=== PATIENT | female | born 2000 | race Caucasian/White ===

== ENCOUNTER 2023-10-03 18:39 | Outpatient (REF) | payer OTHER, SELFPAY ==
[2023-10-09 10:09] LABS: Age Gdln ACOG Testing Note (.); IGP, rfx Aptima HPV ASCU Note (.)
== END 2023-10-03 18:40 | disposition home or self-care (01) ==
LOC: LAB 18:39
PROVIDERS: Visit Provider Obstetrics & Gynecology
DX: Z01.419 Encounter for gynecological examination (general) (routine) without abnormal findings (principal)
CPT/HCPCS: G0145

== ENCOUNTER 2024-10-12 20:14 | Outpatient (REF) | payer OTHER, SELFPAY ==
--- OUTSIDE RECORDS SUMMARY | 2024-10-12 20:19 | XMS_ITS | CCD ---
Author Organization [facility] Care Team Providers Care Data Software Engineer Name Role Phone DR BRE TORRE Attending Unavailable SYLVIE, DR DÍAZ Consulting Unavailable SYLVIE, DR DÍAZ Primary Care Unavailable SYLVIE, DR DÍAZ Admitting Unavailable Jason MCCLURE, Sarah Primary Care Provider Amanda [employer], Irais Unavailable Sarah Gomez MD Unavailable KYLIE MOY Attending Unavailab le AMANDA, IRAIS Attending Unavailable EMERITA MÁRQUEZ Attending Unavailable AARONTRE TAVERAS Attending Unavailable KAMPFER, IRAIS Referring Unavailable AARONTRE Attending Unavailable KAMPFER, IRAIS Attending Unavailable KAMJosetteFER, IRAIS Attending Unavailable BRE TORRE Attending Unavailable EMERITA MÁRQUEZ Attending Unavailable KAMPFER, IRAIS Referring Unavailable KAMPFER, IRAIS Attending Unavailable TIFFANY, JUJU Attending Unavailable KAMPFER, IRAIS Attending Unavailable TIFFANY, JUJU Attending Unavailable KAMPFER, IRAIS Attending Unavailable KAMPFER, IRAIS Referring Unavailable Allergies Allergy Classification Reported Allergen(s) Allergy Type Date of Onset Reaction(s) Facility (1 source) Contrast media Drug allergy (disorder) [facility] (1 source) Sulfonamides (Antibiotic) Drug allergy (disorder) [facility] (11 sources) Contrast media Propensity to adverse reactions 3 Rash [facility] (11 sources) Sulfonamides (Antibiotic) Propensity to adverse reactions 3 Rash [facility] Medications Current Medications Medication Drug Class(es) Dates Sig (Normalized) Sig (Original) amphetamine aspartate 5 mg / amphetamine sulfate 5 mg / dextroamphetamine saccharate 5 mg / dextroamphetamine sulfate 5 mg oral tablet (11 sources) Central Nervous System Stimulant Start: 07-13-2024 take 1 tablet by mouth in the morning amphetamine-dextro amphetamine (Adderall) 20 MG tablet Indications: Attention deficit hyperactivity disorder, predominantly inattentive type (CMS/HCC) Take 1 tablet (20 mg) by mouth in the morning and 1 tablet (20 mg) before bedtime. 60 tablet 07/13/2024 Active Start: 10-07-2023 take 1 capsule by [facility] every twenty-four hours in the morning amphetamine-dextroamphetamine XR (Addera ll XR) 20 MG 24 hr capsule Indications: Attention Deficit Hyperactivity Disorder Take 1 capsule (20 mg) by mouth in the morning. Do not crush or chew.. 30 capsule 0 10/07/2023 Active benzoyl peroxide 0.05 mg/mg / clindamycin 0.01 mg/mg topical gel (3 sources) Lincosamide Antibacterial Start: 06-18-2023 clindamycin-benzoyl peroxide (BenzacLIN) gel 24 hr buPROPion hydrochloride 150 mg extended release oral tablet (8 sources) Aminoketone Start: 07-13-2024 End: 10-11-2024 take 1 tablet by mouth once daily buPROPion XL (Wellbutrin XL) 150 MG 24 hr tablet Indications: Obesity (BMI 30-39.9) , Anxiety and depression (CMS/HCC) Take 1 tablet (150 mg) by mouth Daily Do not crush, chew, or split. 90 tablet 07/13/2024 Active clindamycin 10 mg/ml topical lotion (11 sources) Lincosamide Antibacterial Start: 02-10-2024 clindamycin (Cleocin T) 1 % lotion Indications: Acne vulgaris Apply thin layer to face, once daily in the morning, 30 day supply 60 mL 11 02/10/2024 Active Start: 11-05-2023 clindamycin (C leocin T) 1 % lotion Indications: Acne vulgaris Apply thin later to affected areas on the body during flares, 30 day supply 60 mL 3 11/05/2023 Active doxycycline hyclate 100 mg oral capsule (4 sources) Tetracycline-class Drug Start: 07-27-2024 End: 09-25-2024 doxycycline (Vibramycin) 100 MG capsule Indications: Vaginal burning Take 1 capsule (100 mg) by mouth in the morning and 1 capsule (100 mg) before bedtime. Take with at least 8 ounces (large glass) of water, do not lie down for 30 minutes after. 120 capsule 07/27/2024 09/25/2024 Active fluconazole 150 mg oral tablet (1 source) Azole Antifungal Start: 09-16-2024 End: 09-16-2024 take 1 tablet by mouth once fluconazole (Diflucan) 150 MG tablet Indications: Candidiasis Take 1 tablet (150 mg) by mouth 1 (one) time for 1 dose 1 tablet 09/16/2024 09/16/2024 Active hydrOXYzine hydrochloride 25 mg oral tablet (10 sources) Antihistamine Start: 01-06-2024 End: 02-05-2024 take 1 tablet by mouth three times daily as needed for anxiety hydrOXYzine HCl (Atarax) 25 MG tablet Indications: Anxiety and depression (CMS/HCC) Take 1 tablet (25 mg) by mouth 3 (three) times a day as needed for anxiety 90 tablet 01/06/2024 Active levonorgestrel 0.697348 mg/hr intrauterine system (11 sources) Progestin, Progestin-containing Intrauterine Device Levonorgestrel (Liletta, 52 MG,) 20.1 MCG/DAY intrauterine device by Intrauterine route. Active magnesium oxide 400 mg oral tablet (8 sources) Start: 06-05-2024 take 1 tablet by mouth once daily magnesium oxide (Mag-Ox) 400 MG tablet Indications: Other migraine without status migrainosus, not intractable (CMS/HCC) Take 1 tablet (400 mg) by mouth Daily 90 tablet 06/05/2024 Active metroNIDAZOLE 500 mg oral tablet (4 sources) Nitroimidazole Antimicrobial Start: 09-21-2024 End: 09-28-2024 take 1 tablet by mouth in the morning metroNIDAZOLE (Flagyl) 500 MG tablet Indications: Bacterial vaginosis Take 1 tablet (500 mg) by mouth in the morning and 1 tablet (500 mg) before bedtime. Do all this for 7 days. 14 tablet 09/21/2024 09/28/2024 Active minocycline 100 mg oral capsule (2 sources) Tetracycline-class Drug Start: 12-08-2023 minocycline 100 MG capsule predniSONE 20 mg oral tablet (2 sources) Start: 09-26-2024 End: 10-01-2024 take 1 tablet by mouth in the morning predniSONE (Deltasone) 20 MG tablet Indications: Neck pain Take 1 tablet (20 mg) by mouth in the morning and 1 tablet (20 mg) before bedtime. Do all this for 5 days. 10 tablet 09/26/2024 10/01/2024 Active tiZANidine 2 mg oral tablet (3 sources) Central alpha-2 Adrenergic Agonist Start: 09-26-2024 End: 10-01-2024 take 1 tablet by mouth every eight hours for muscle spasms tiZANidine (Zanaflex) 2 MG tablet Indications: Neck pain Take 1 tablet (2 mg) by mouth every 8 (eight) hours if needed for muscle spasms for up to 5 days 15 tablet 09/26/2024 Active tretinoin 0.0001 mg/mg topical gel (11 sources) Retinoid Start: 12-03-2023 End: 03-02-2024 tretinoin (Retin-A) 0.01 % gel Indications: Acne vulgaris Apply topically at bedtime 45 g 2 12/03/2023 03/02/2024 Active 24 hr venlafaxine 37.5 mg extended release oral capsule (2 sources) Serotonin and Norepinephrine Reuptake Inhibitor Start: 01-06-2024 End: 02-05-2024 take 1 capsule by mouth every twenty-four hours in the morning venlafaxine XR (Effexor XR) 37.5 MG 24 hr capsule Indications: Anxiety and depression (CMS/HCC) Take 1 capsule (37.5 mg) by mouth in the morning. Do not crush or chew.. 30 capsule 0 01/06/2024 02/05/2024 Active Problems Active Problems Problem Classification Problem Date Documented Date Episodic/Chronic Anxiety disorders (1 source) Mixed anxiety and depressive disorder; Translations: [Anxiety disorder, unspecified] 01-06-2024 Chronic Attention-deficit, conduct, and disruptive behavior disorders (13 sources) Attention deficit hyperactivity disorder, predominantly inattentive type; Translations: [Attention-deficit hyperactivity disorder, predominantly inattentive type] Onset: 02-10-2018 07-09-2023 Chronic Immunizations and screening for infectious disease (1 source) Encounter for screening for human papillomavirus (HPV); Translations: [ENC SCREENING HUMAN PAPILLOMAVIRUS] Onset: 12-05-2021 Episodic Inflammatory diseases of female pelvic organs (1 source) Bacterial vaginosis; Translations: [Acute vaginitis] 09-21-2024 Episodic Mycoses (1 source) Candidiasis; Translations: [Candidiasis, unspecified] 09-16-2024 Episodic Other female genital disorders (1 source) Vaginal discharge; Translations: [Other specified noninflammatory disorders of vagina] 09-18-2024 Episodic Other nutritional; endocrine; and metabolic disorders (2 sources) Body mass index 30+ - obesity; Translations: [Obesity, unspecified] 09-26-2024 Chronic Other screening for suspected conditions (not mental disorders or infectious disease) (4 sources) Encounter for screening for malignant neoplasm of cervix; Translations: [ENC SCREENING MALIG NEOPLASM CERV] Onset: 11-29-2021 Episodic Other upper respiratory disease (11 sources) Allergic rhinitis due to pollen; Translations: [Allergic rhinitis due to pollen] Onset: 02-10-2018 07-09-2023 Chronic Spondylosis; intervertebral disc disorders; other back problems (2 sources) Neck pain; Translations: [Cervicalgia] 09-26-2024 Episodic Unclassified (10 sources) Patient on antidepressant monitoring plan Onset: 01-06-2024 01-06-2024 Past or Other Problems Problem Classification Problem Date Documented Da te Episodic/Chronic Mood disorders (11 sources) Mood disorders Onset: 10-30-2023 Resolved: 07-13-2024 10-30-2023 Results Test Name Value Interpretation Reference Range Facility XR CERVICAL SPINE COMPLETE 4 -5 VIEWSon 09-28-2024 XR CERVICAL SPINE COMPLETE 4-5 VIEWS Exam: XR - CERVICAL SPINE COMPLETE W/OBLIQUES Reason for exam: Neck pain, numbness and tingling Prior comparative studies: None Findings: There is overall normal cervical alignment. Neuroforamina are patent bilaterally. Open-mouth view is unremarkable. No fracture or subluxation is apparent. Atlantoaxial space is normal. No prevertebral soft tissue swelling seen. IMPRESSION: 1. No specific abnormality identified. Electronically Signed Jayden Alvarez M.D. 2024-09-28 11:05:47 Normal Not Available SURESWAB(R) ADVANCED VAGINIT IS PLUS, TMAon 09-21-2024 C. glabrata RNA FRANCISCA+probe Ql (Vag fld) Not detected NOT DETECTED [facility] Comment on above: Mindy species C. albicans, C. tropicalis, C. parapsilosis, and/or C. dubliniensis can be detected, but not differentiated, in the Mindy spp. result. C. trachomatis rRNA FRANCISCA+probe Ql (Unsp spec) Not detected NOT DETECTED [facility] Mindy sp rRNA Probe Ql (Vag fld) Not detected NOT DETECTED [facility] re Interpretation and review of laboratory results Abnormal [facility] Lactobacillus crispatus+gasseri+je nsenii + Gardnerella vaginalis + Atopobium vaginae rRNA FRANCISCA+probe Ql (Vag fld) Positive Abnormal NEGATIVE [facility] N. gonorrhoeae rRNA FRANCISCA+probe Ql (Unsp spec) Not detected NOT DETECTED [facility] Comment on above: For additional infor mation, please refer to https://education.Brainpark/faq/UWO144 (This link is being provided for information/ educational purposes only.) NO COLLECTION DATE RECEIVED. WE HAVE USED THE DATE THE SPECIMEN WAS RECEIVED BY THIS LABORATORY THE COLLECTION DATE. IF THIS IS INCORRECT, PLEASE CONTACT CLIENT SERVICES. PHONE NUMBER: [phone] T. vaginalis rRNA FRANCISCA+probe Ql (Unsp spec) Not detected NOT DETECTED [facility] FASTING: UNKNOWN [facility] Organization Information Site ID: QPT Name: [facility] Address: [address] [place] [id number] Director: Clint Hector MD [facility]G PAN[facility] 2: 21 to 27on 12-05-2021 . . Normal [facility] Comment on above: Performed By: #### [id number] #### [facility] [address] [address] [address] Jackson Naylor Age Gdln ACOG Testing - Normal [facility] Comment on above: Performed By: #### [id number] #### [facility] [address] [address] [address] Jackson Naylor DIAGNOSIS: Comment Normal [facility] Comment on above: Result Comment: NEGA TIVE FOR INTRAEPITHELIAL LESION OR MALIGNANCY. Performed By: #### [id number] #### [facility] [address] [address] [address] Jackson Naylor Methodology: Comment [facility] Comment on above: Result Comment: This liquid based ThinPrep(R) pap test was screened with the use of an image guided system. Performed By: #### [id number] #### [facility] [address] [place] [address] Dr. Jackson Naylor Note: Comment Normal [facility] Comment on above: Result Comment: The Pap smear is a screening test designed to aid in the detection of premalignant and malignant conditions of the uterine cervix. It is not a diagnostic procedure and should not be used as the sole means of detecting cervical cancer. Both false-positive and false-negative reports do occur. . Performed By: #### [id number] #### [facility] [address] [place] [address] Dr. Jackson Naylor Performed by: Comment Normal [facility] Comment on above: Result Comment: Segundo Ferguson, Supervisor Agricultural Education (ASCP) Performed By: #### [id number] #### [facility] [address] [place] [address] Dr. Jackson Naylor Reflex Criteria: Comment Normal [facility] Comment on above: Result Comment: The HPV DNA reflex criteria were not met with this specimen result therefore, no HPV testing was performed. . Performed By: #### [id number] #### [facility] [address] [place] [address] Dr. Jackson Naylor Specimen adequacy: Comment Normal [facility] Comment on above: Result Comment: Sati sfactory for evaluation. Endocervical and/or squamous metaplastic cells (endocervical component) are present. Performed By: #### 4 [id number] #### [facility] [address] [place] [address] Dr. Jackson Naylor CHLAMYDIA/GONOCOCCUS FRANCISCA (SW AB/URINE/PAPon 12-03-2021 Chlamydia trachomatis, FRANCISCA Negative Normal Negative [facility] Comment on above: Performed By: #### C T/NGNA #### [facility] [address] [place] [address] Dr. Jackson Naylor Neisseria gonorrhoeae, FRANCISCA Negative Normal Negative [facility] Comment on above: Performed By: #### C T/NGNA #### [facility] [address] [place] [address] Dr. Jackson Naylor VAGINITIS/VAGINOSIS DNA PROB Markel 12-02-2021 Mindy species Negative Normal Negative [facility] Comment on above: Performed By: #### V AGINT #### [facility] [address] [address] [address] Jackson Naylor Gardnerella vaginalis Positive Abnormal Negative [facility] Comment on above: Performed By: #### V AGINT #### [facility] [address] [address] [address] Jackson Naylor Trichomonas vaginalis Negative Normal Negative [facility] Comment on above: Performed By: #### V AGINT #### [facility] [address] [place], [place] [address] Dr. Jackson Naylor Vital Signs Date Time Vital Sign Value Performing Clinician Ning morgan 09-26-2024 09:59-0400 Body height 154.9 cm Irais Patel [employer] Work Phone: [facility] 09-26-2024 09:59-0400 Body mass index (BMI) [Ratio] 31.55 kg/m2 Irais Amanda [employer] Work Phone: [facility] 09-26-2024 09:59-0400 Body weight 75.75 kg Irais Amanda [employer] Work Phone: [facility] 09-26-2024 09:59-0400 Diastolic blood pressure 82 mm[Hg] Irais Amanda [employer] Work Phone: [facility] 09-26-2024 09:59-0400 Heart rate 71 /min Irais Amanda [employer] Work Phone: [facility] 09-26-2024 09:59-0400 Respiratory rate 18 /min Irais Amanda [employer] Work Phone: [facility] 09-26-2024 09:59-0400 Systolic blood pressure 122 mm[Hg] Irais Patel [employer] Work Phone: [facility] 01-06-2024 09:39-0500 Body height 157.5 cm Irais Patel [employer] Work Phone: [facility] 01-06-2024 09:39-0500 Body mass index (BMI) [Ratio] 36.51 kg/m2 Irais Patel [employer] Work Phone: [facility] 01-06-2024 09:39-0500 Body weight 90.54 kg Irais Patel [employer] Work Phone: [facility] 01-06-2024 09:39-0500 Diastolic blood pressure 70 mm[Hg] Irais Patel [employer] Work Phone: [facility] 01-06-2024 09:39-0500 Heart rate 70 /min Irais Patel [employer] Work Phone: [facility] 01-06-2024 09:39-0500 SaO2% (BldA) [Mass fraction] 96 % Irais Patel [employer] Work Phone: [facility] 01-06-2024 09:39-0500 Systolic blood pressure 110 mm[Hg] Irais Patel [employer] Work Phone: [facility] Encounters Encounter Date Encounter Type Care Provider Facility Start: 10-12-2024 End: 10-12-2024 Bamboo flowsheet Bre Sylvie DO Work Phone: [facility] Start: 10-12-2024 End: 10-12-2024 Bamboo flowsheet Bre Sylvie DO Work Phone: [facility] Start: 09-28-2024 End: 09-28-2024 ambulatory IRAIS PATEL Not Available Start: 09-26-2024 End: 09-26-2024 Bamboo flowsheet Irais Patel [employer] Work Phone: [facility] Start: 09-26-2024 End: 09-26-2024 Bamboo flowsheet Irais Patel [employer] Work Phone: [facility] Start: 09-26-2024 End: 09-26-2024 Office outpatient visit 25 minutes Irais Patel [employer] Work Phone: [facility] Comment on above: Neck pain (Primary D x); Obesity (BMI 30-39.9); Attention deficit hyperactivity disorder, predominantly inattentive type (CMS/HCC) Start: 09-26-2024 End: 09-26-2024 ambulatory IRAIS PATEL Not Available Start: 09-21-2024 End: 09-21-2024 External Result Encounter Irais Patel [employer] Work Phone: [facility] Unsolicited Start: 09-21-2024 End: 09-21-2024 External Result Encounter Irais Patel [employer] Work Phone: [facility] Unsolicited Start: 09-21-2024 End: 09-21-2024 Orders Only Irais Patel [employer] Work Phone: [facility] Comment on above: Bacterial vaginosis (Primary Dx) Start: 09-18-2024 End: 09-18-2024 Orders Only Irais Patel [employer] Work Phone: [facility] Comment on above: Vaginal discharge (P rimary Dx) Start: 09-16-2024 End: 09-16-2024 Orders Only Irais Patel [employer] Work Phone: [facility] Comment on above: Candidiasis (Primary Dx) Start: 07-27-2024 End: 07-27-2024 ambulatory JUJU TIFFANY Not Available Start: 07-13-2024 End: 07-13-2024 ambulatory IRAIS KAMPFER Not Available Start: 06-24-2024 End: 06-24-2024 ambulatory JUJU TIFFANY Not Available Start: 04-10-2024 End: 04-10-2024 ambulatory IRAIS KAMPFER Not Available Start: 03-27-2024 End: 03-27-2024 ambulatory IRAIS KAMPFER Not Available Start: 03-04-2024 End: 03-04-2024 ambulatory TRE L AARON Not Available Start: 02-12-2024 End: 02-12-2024 ambulatory TRE L AARON Not Available Start: 02-10-2024 End: 02-10-2024 ambulatory EMERITA MÁRQUEZ Not Available Start: 01-15-2024 Telephone encounter Virginia VALENTEW [facility] Start: 01-06-2024 Bamboo flowsheet Irais Patel [employer] Work Phone: [facility] Start: 01-06-2024 Bamboo flowsheet Irais Patel [employer] Work Phone: [facility] Start: 01-06-2024 End: 01-06-2024 ambulatory IRAIS PATEL Not Available Start: 01-06-2024 End: 01-06-2024 Office outpatient visit 15 minutes Irais Amanda [employer] Work Phone: [facility] Comment on above: Anxiety and depressi on (CMS/HCC) (Primary Dx) Start: 11-05-2023 End: 11-05-2023 ambulatory EMERITA MÁRQUEZ Not Available Start: 11-04-2023 End: 11-04-2023 ambulatory BRE TORRE Not Available Start: 10-30-2023 End: 10-30-2023 ambulatory IRAIS MALIKRAY Not Available Start: 10-15-2023 End: 10-15-2023 ambulatory KYLIE MOY Not Available Start: 11-29-2021 End: 11-29-[address] BRE TORRE Facility:[facility]1 Procedures Date Procedure Procedure Detail Performing Clinician Start: 09-21-2024 SURESW(R) ADVANCED VAGINITIS PLUS, TMA Irasi Patel [employer] Work Phone: Plan of Treatment Date Care Activity Detail Author Start: 05-31-2025 Influenza vaccination Influenz a Vaccine (#1) [facility] Comment on above: Postponed from 08/02 (Patient Refused) Start: 02-17-2025 End: 02-17-2025 Patient encounter procedure 02/17/2025 9:05 AM EDT Office Visit [facility] [address] [place] [id number] Emerita Márquez, LIFT DRIVER-ROUNDER AND BACKER [address] [place] [address] [facility] Start: 10-12-2024 End: 10-12-2024 Patient encounter procedure [facility] Comment on above: Arrived Start: 09-26-2024 End: 09-26-2025 XR Cervical spine 4 or 5 Views XR cervical spine complete 4 to 5 views Imaging Routine Neck pain Expected: 09/26/2024, Expires: 09/26/2025 [facility] Work Phone: Comment on above: Expected: 09/26/2024 , Expires: 09/26/2025 Start: 09-26-2024 End: 09-26-2024 Patient encounter procedure 09/26/2024 10:00 AM EDT [facility] [address] [place] [id number] Irais Patel NP [address] [place] [address] Arrived [facility] Comment on above: Arrived Start: 09-18-2024 End: 09-18-2025 SURESWAB(R) ADVANCED VAGINITIS PLUS, TMA SURESWAB(R) ADVANCED VAGINITIS PLUS, TMA Pathology and Cytology Routine Vaginal discharge Expected: 09/18/2024 (Approximate), Expires: 09/18/2025 [facility] Work Phone: Comment on above: Expected: 09/18/2024 (Approximate), Expires: 09/18/2025 Start: 08-02-2024 Influenza vaccination Influenz a Vaccine (#1) [facility] Start: 05-31-2024 Influenza vaccination Influenz a Vaccine (#1) [facility] Comment on above: Postponed from 08/02 (Patient Refused) Start: 02-10-2024 End: 02-10-2024 Patient encounter procedure 02/10/2024 9:35 AM EDT Office Visit [facility] [address] [place] [address] Emerita Márquez APRN-ROUNDER AND BACKER [address] [place] [address] [facility] Immunizations Immunization Date Immunization Notes Care Provider Fa cili 10-06-2021 influenza, injectabl e, quadrivalent, preservative free Irais Kampfer [employer] Work Phone: [facility] 10-06-2021 influenza virus vacc ine, unspecified formulation Irais Patel [employer] Work Phone: [facility] 09-15-2020 diphtheria, tetanus toxoids and pertussis vaccine Irais Patel [employer] Work Phone: [facility] 02-28-2018 tetanus toxoid, redu michelle diphtheria toxoid, and acellular pertussis vaccine, adsorbed Irais Patel [employer] Work Phone: [facility] 04-10-2017 tuberculin skin test ; purified protein derivative solution, intradermal Irais Patel [employer] Work Phone: [facility] 04-09-2017 influenza, injectabl e, quadrivalent, preservative free Irais Patel [employer] Work Phone: [facility] 08-18-2010 tetanus toxoid, redu michelle diphtheria toxoid, and acellular pertussis vaccine, adsorbed Irais Patel [employer] Work Phone: [facility] 03-24-2003 diphtheria, tetanus toxoids and acellular pertussis vaccine Irais Patel [employer] Work Phone: [facility] 03-24-2003 measles, mumps and rubella virus vaccine Irais Patel [employer] Work Phone: [facility] 03-24-2003 poliovirus vaccine, inactivated Irais Patel [employer] Work Phone: [facility] 07-31-1999 diphtheria, tetanus toxoids and acellular pertussis vaccine, unspecified formulation Irais Patel [employer] Work Phone: [facility] 07-31-1999 haemophilus influenz ae type b vaccine, conjugate unspecified formulation Irais Patel [employer] Work Phone: [facility] 07-31-1999 measles, mumps and rubella virus vaccine Irais Patel [employer] Work Phone: [facility] 07-31-1999 trivalent poliovirus vaccine, live, oral Irais Patel [employer] Work Phone: [facility] 1998 diphtheria, tetanus toxoids and acellular pertussis vaccine, unspecified formulation Irais Malikpfer [employer] Work Phone: [facility] 1998 haemophilus influenz ae type b vaccine, conjugate unspecified formulation Irais Malikpfer [employer] Work Phone: [facility] 1998 diphtheria, tetanus toxoids and acellular pertussis vaccine, unspecified formulation Irais Malikpfer [employer] Work Phone: [facility] 1998 haemophilus influenz ae type b conjugate and Hepatitis B vaccine Irais Malikpfer [employer] Work Phone: [facility] 1998 poliovirus vaccine, inactivated Irais Malikpfer [employer] Work Phone: [facility] 1998 diphtheria, tetanus toxoids and acellular pertussis vaccine, unspecified formulation Irais Malikpfer [employer] Work Phone: [facility] 1998 haemophilus influenz ae type b conjugate and Hepatitis B vaccine Irais Malikpfer [employer] Work Phone: [facility] 1998 poliovirus vaccine, inactivated Irais Malikpfer [employer] Work Phone: [facility] 1998 hepatitis B vaccine, pediatric or pediatric/adolescent dosage Irais Malikpfer [employer] Work Phone: [facility] Payers Date Payer Category Payer Medicaid [employer] [place] [id number] 2022-Present [address] [place] [address] [id number] 2022 Private Health Insurance [facility] MEDICAID [id number] 2022 Medicaid [id number] 1998 Unknown [id number] 2.16.840.1.851940.3.579.2. 593 1998 Unknown [id number] 2.16.840.1.519715.3.579.2. 1258 1998 Unknown [id number] 2.16.840.1.999311.3.579.2. 1258 1998 Unknown [id number] 2.16.840.1.027949.3.579.2. 1258 1998 Unknown [id number] 2.16.840.1.723246.3.579.2. 1258 1998 Unknown [id number] 2.16.840.1.577108.3.579.2. 1258 1998 Unknown [id number] 2.16.840.1.023548.3.579.2. 1258 1998 Unknown [id number] 2.16.840.1.776922.3.579.2. 1258 1998 Unknown [id number] 2.16.840.1.840084.3.579.2. 1258 1998 Unknown [id number] 2.16.840.1.199204.3.579.2. 1258 1998 Unknown [id number] 2.16.840.1.187496.3.579.2. 1258 1998 Unknown [id number] 2.16.840.1.634351.3.579.2. 1258 1998 Unknown [id number] 2.16.840.1.889599.3.579.2. 1258 1998 Unknown [id number] 2.16.840.1.919505.3.579.2. 1258 1998 Unknown [id number] 2.16.840.1.699742.3.579.2. 1259 1998 Unknown [id number] 2.16.840.1.248274.3.579.2. 1259 1959 Unknown [id number] Social History Date Type Detail Facility Start: 07-09-2023 Tobacco smoking status NHIS Never sm oked tobacco [facility] Start: 07-09-2023 Tobacco use and exposure Smoke less tobacco non-user [facility] Start: 11-05-2023 End: 09-26-2024 Alcohol intake Ex-drinker (finding) [facility] Start: 07-09-2023 End: 07-13-2024 [facility] of [facility] Start: 07-09-2023 End: 07-13-2024 Alcohol Use Disorder Identification Test - Consumption [AUDIT-C] [facility] How often to you hav e a drink containing alcohol? Monthly or less [facility] How many standard dr inks containing alcohol do you have on a typical day? 1 or 2 [facility] How often do you hav e 6 or more drinks on 1 occasion? Never [facility] Start: 11-05-2023 Alcohol Comment rare [facility] Start: 1998 Sex Assigned At Not on file [facility] Start: 03-27-2024 Alcohol Comment rare; caffeine intake: 2-3 daily [facility] Start: 1998 Sex assigned at Female [facility] Start: 08-28-2024 Gender identity Identifies as female gender (finding) [facility] Goals Date Patient Goal Desired Activity /State Personal health goal Personal health goal History of Present illness Narrative 09-26-2024 Irais Patel NP - 09/26/2024 10:00 AM EDT Note Date & Type Note Facility 09-26-2024 History of Presen t illness Narrative Sandy Ibrahim is a 24 y.o. female presents with chief complaint of Neck Pain (Patient presents today for neck pain/possible pinched nerve. Patient has tried otc pain medication and exercises given by Kala Herrmann, [employer], that have not helped. ) HPI: HPI Has been having neck pain off and on for the past month, she talked with Kala Hoops, regional trainer, was provided exercises to start. Saturday, the pain was so bad she could barely move her neck. She restarted the exercises. She took a muscle relaxer and ibuprofen on Saturday but it made her very tired and she slept. Did feel have some relief after the muscle relaxer but doesn't want to use again d/t the side effects. She has pain looking down as well. Reports having some tingling in her hands as well. Using heat, massaging. No improvement. We did switch her adderall to immediate release, she feels she is doing better with it, taking it more frequently but does not take it daily. She is dealing with a of stress, stress at work and at home. SUBJECTIVE: MEDICATIONS: Current Outpatient Medications Medication Instructions amphetamine-dextroamphetamine (Adderall) 20 MG tablet 20 mg, Oral, 2 times daily buPROPion XL (WELLBUTRIN XL) 150 mg, Oral, Daily, Do not crush, chew, or split. clindamycin (Cleocin T) 1 % lotion Apply thin layer to face, once daily in the morning, 30 day supply hydrOXYzine HCl (ATARAX) 25 mg, Oral, 3 times daily PRN Levonorgestrel (Liletta, 52 MG,) 20.1 MCG/DAY intrauterine device by Intrauterine route. magnesium oxide (MAG-OX) 400 mg, Oral, Daily metroNIDAZOLE (FLAGYL) 500 mg, Oral, 2 times daily tretinoin (Retin-A) 0.01 % gel Nightly ALLERGIES: Allergies Allergen Reactions Red Dye #40 (Allura Red) Rash Sulfa Antibiotics Rash SURGICAL HISTORY: Past Surgical History: Procedure Laterality Date WISDOM TOOTH EXTRACTION FAMILY HISTORY: Family History Problem Relation Name Age of Onset Diverticulitis Mother Cancer Father Lung cancer Paternal Grandmother SOCIAL HISTORY: Social History Tobacco Use Smoking status: Never Smokeless tobacco: Never Vaping Use Vaping status: Never Used Substance Use Topics Alcohol use: Not Currently Comment: rare; caffeine intake: 2-3 daily Drug use: Never Depression: Not at risk (07/13/2024) PHQ-2 PHQ-2 Score: 1 REVIEW OF SYMPTOMS: Review of Systems Musculoskeletal: Positive for neck pain. OBJECTIVE: Visit Vitals BP 122/82 (BP Location: Right arm, Patient Position: Sitting, BP Cuff Size: Adult) Pulse 71 Resp 18 Ht 5' 1 Wt 167 lb BMI 31.55 kg/m OB Status No Periods Smoking Status Never BSA 1.81 m Physical Exam Vitals reviewed. Constitutional: Appearance: Normal appearance. HENT: Head: Normocephalic and atraumatic. Nose: Nose normal. Mouth/Throat: Mouth: Mucous membranes are moist. Eyes: Pupils: Pupils are equal, round, and reactive to light. Neck: Comments: ROM decreased d/t pain. Increased pain with flexion. No spasming on exam Cardiovascular: Rate and Rhythm: Normal rate and regular rhythm. Pulses: Normal pulses. Heart sounds: Normal heart sounds. Pulmonary: Effort: Pulmonary effort is normal. Breath sounds: Normal breath sounds. Musculoskeletal: Cervical back: Neck supple. Right lower leg: No edema. Left lower leg: No edema. Skin: General: Skin is warm and dry. Capillary Refill: Capillary refill takes less than 2 seconds. Findings: No rash. Neurological: General: No focal deficit present. Mental Status: She is alert and oriented to person, place, and time. ASSESSMENT AND PLAN: Assessment/Plan Diagnoses and all orders for this visit: Neck pain - predniSONE (Deltasone) 20 MG tablet; Take 1 tablet (20 mg) by mouth in the morning and 1 tablet (20 mg) before bedtime. Do all this for 5 days. - tiZANidine (Zanaflex) 2 MG tablet; Take 1 tablet (2 mg) by mouth every 8 (eight) hours if needed for muscle spasms for up to 5 days - XR cervical spine complete 4 to 5 views; Future -Initiate steroids and muscle relaxers, obtain imaging. Continue HEP Obesity (BMI 30-39.9) -Down 30 lbs since. On compounded semaglutide. Attention deficit hyperactivity disorder, predominantly inattentive type (CMS/HCC) -Doing ok on adderall. Encouraged better compliance with taking it regularly. documented in this encounter [facility] Telephone encounter Note 01-15-2024 Telephone Encounter - Lexi Keyes - 01/15/2024 7:14 AM EST Note Date & Type Note Facility 01-15-2024 Telephone encount er Note Covered at 100% with unlimited visits [facility] Note 01-15-2024 Telephone Encounter - Lexi Keyes - 01/15/2024 7:14 AM EST Note Date & Type Note Facility 01-15-2024 Miscellaneous Notes Formattin g of this note is different from the original. Covered at 100% with unlimited visits documented in this encounter [facility] History of Present illness Narrative 01-06-2024 Irais Patel NP - 01/06/2024 9:30 AM EST Note Date & Type Note Facility 01-06-2024 History of Presen t illness Narrative Sandy Ibrahim is a 23 y.o. female presents with chief complaint of Panic Attack HPI: Patient presents to the office today to discuss options for anxiety/depression. She has a history of anxiety and depression, reports history of cutting herself when she was a child, was briefly admitted to a [facility] then, did counseling throughout her childhood. No thoughts of harm to self or others right now. Has had increased stress in her personal life, her ex was recently arrested for domestic violence against his new girlfriend, has been released, since being released, has told her he loved her and thought they were meant to be together, then a few days later told her he was in love with his new girlfriend and doesn't think they should talk anymore. He is not currently answering her messages. She believes his girlfriend is . They do share two children together. One is currently struggling at school, is having a lot of behavioral issues, she had a meeting with the principal and teacher today and has another one scheduled for Saturday. Over the past 2 weeks, how often have you been bothered by any of the following problems? Little interest or pleasure in doing things: Several days Feeling down, depressed, or hopeless: More than half the days Trouble falling or staying asleep, or sleeping too much: Nearly every day Feeling tired or having little energy: More than half the days Poor appetite or overeating: Several days Feeling bad about yourself - or that you are a failure or have let yourself or your family down: Nearly every day Trouble concentrating on things, such as reading the newspaper or watching television: More than half the days Moving or speaking so slowly that other people could have noticed? Or the opposite - being so fidgety or restless that you have been moving around a lot more than usual.: Not at all Thoughts that you would be better off or hurting yourself in some way: Not at all Patient Health Questionnaire-9 Score: 14 Over the last 2 weeks, how often have you been bothered by any of the following problems? Feeling nervous, anxious, or on edge: More than half the days Not being able to stop or control worrying: Nearly every day Worrying too much about different things: Nearly every day Trouble relaxing: More than half the days Being so restless that it is hard to sit still: Not at all Becoming easily annoyed or irritable: Nearly every day Feeling afraid as if something awful might happen: Several days GRACE-7 Total Score: 14 SUBJECTIVE: MEDICATIONS: Current Outpatient Medications Medication Instructions amphetamine-dextroamphetamine XR (Adderall XR) 20 MG 24 hr capsule 20 mg, Oral, Every morning, Do not crush or chew. clindamycin (Cleocin T) 1 % lotion Apply thin later to affected areas on the body during flares, 30 day supply clindamycin-benzoyl peroxide (BenzacLIN) gel Levonorgestrel (Liletta, 52 MG,) 20.1 MCG/DAY intrauterine device Intrauterine minocycline 100 MG capsule tretinoin (Retin-A) 0.01 % gel Topical, Nightly REVIEW OF SYMPTOMS: Review of Systems Constitutional: Negative. HENT: Negative. Eyes: Negative. Respiratory: Negative. Cardiovascular: Negative. Gastrointestinal: Negative. Genitourinary: Negative. Musculoskeletal: Negative. Skin: Negative. Neurological: Negative. Psychiatric/Behavioral: Positive for agitation. The patient is nervous/anxious. OBJECTIVE: Visit Vitals BP 110/70 (BP Location: Right arm, Patient Position: Sitting, BP Cuff Size: Large adult) Pulse 70 Ht 5' 2 Wt 199 lb 9.6 oz SpO2 96% BMI 36.51 kg/m Smoking Status Never BSA 1.99 m Physical Exam Vitals reviewed. HENT: Head: Normocephalic and atraumatic. Nose: Nose normal. Mouth/Throat: Mouth: Mucous membranes are moist. Eyes: Pupils: Pupils are equal, round, and reactive to light. Cardiovascular: Rate and Rhythm: Normal rate and regular rhythm. Pulses: Normal pulses. Heart sounds: Normal heart sounds. Pulmonary: Effort: Pulmonary effort is normal. Breath sounds: Normal breath sounds. Musculoskeletal: Cervical back: Normal range of motion and neck supple. Skin: General: Skin is warm and dry. Capillary Refill: Capillary refill takes less than 2 seconds. Findings: No rash. Neurological: General: No focal deficit present. Mental Status: She is alert and oriented to person, place, and time. Psychiatric: Attention and Perception: Attention normal. Mood and Affect: Mood is depressed. Affect is tearful. Speech: Speech normal. Behavior: Behavior is cooperative. Thought Content: Thought content normal. Cognition and Memory: Cognition normal. Judgment: Judgment normal. ASSESSMENT AND PLAN: Assessment/Plan Diagnoses and all orders for this visit: Anxiety and depression (CMS/HCC) - venlafaxine XR (Effexor XR) 37.5 MG 24 hr capsule; Take 1 capsule (37.5 mg) by mouth in the morning. Do not crush or chew.. - hydrOXYzine HCl (Atarax) 25 MG tablet; Take 1 tablet (25 mg) by mouth 3 (three) times a day as needed for anxiety - Ambulatory referral to Behavioral Health; Future -Start effexor. Hydroxyzine prn. Refer to counseling. Reviewed importance of healthy diet and exercise, stress management, and social support. documented in this encounter [facility] Evaluation note Note Date & Type Note Facility Evaluation note Diagnosis Anxiety and depression (CMS/HCC)- Primary documented in this encounter [facility] Evaluation note Note Date & Type Note Facility Evaluation note Diagnosis Candidiasis- Primary documented in this encounter [facility] Evaluation note Note Date & Type Note Facility Evaluation note Diagnosis Vaginal discharge- Primary Leukorrhea, not specified as infective documented in this encounter [facility] Evaluation note Note Date & Type Note Facility Evaluation note Diagnosis Bacterial vaginosis- Primary Unspecified vaginitis and vulvovaginitis documented in this encounter [facility] Evaluation note Note Date & Type Note Facility Evaluation note Diagnosis Neck pain- Primary Cervicalgia Obesity (BMI 30-39.9) Attention deficit hyperactivity disorder, predominantly inattentive type (CMS/HCC) documented in this encounter [facility] Reason for referral (narrative) Consultation (Routine) - Pending Review Note Date & Type Note Facility Reason for referral (narrati ve) Specialty Diagnoses / Procedures Referred By Aida jameson Referred To Contact Behavioral Health Diagnoses Anxiety and depression (CMS/HCC) Procedures PA OFFICE/OUTPATIENT NEW HIGH MDM 60 MINUTES Irais Patel NP [address] [place] [address] Aimee Llanos LISW-S [address] [place] [address] Referral ID Status Reason Start Date Expiration Date Visits Requested Visits Authorized [id number] Pending Review Specialty Services Required 01/06/2024 07/04/2024 1 1 [facility] Summary Purpose Family History No Family History Records FoundNo Family History Records Found Advance Directives No Advanced Directives Records FoundNo Advanced Directives Records Found Additional Source Comments INFORMATION SOURCE (unrecogn ized section and content) DATE CREATED AUTHOR 12/29/2021 [facility] DATE CREATED AUTHOR AUTHOR'S ORGANIZ ATION 10/04/2024 [facility] Care Teams (unrecognized sec tion and content) Data Software Engineer Relationship Specialty Start Date End Date Sarah Gomez MD [address] [place] [address] PCP - General Family Medicine 07/08/23 Irais Patel NP [address] [place] [address] Nurse Practitioner Family Medicine 07/08/23 Data Software Engineer Relationship Specialty Start Date End Date Sarah Gomez MD [address] [place] [address] PCP - General Family Medicine 07/08/23 Irais Patel NP [address] [place] [address] Nurse Practitioner Family Medicine 07/08/23 Data Software Engineer Relationship Specialty Start Date End Date Sarah Gomez MD [address] [place] [address] PCP - General Family Medicine 07/08/23 Irais Patel NP [address] [place] [address] Nurse Practitioner Family Medicine 07/08/23 Data Software Engineer Relationship Specialty Start Date End Date Sarah Gomez MD [address] [place] [address] PCP - General [facility] 07/08/23 Sarah Gomez MD [address] [place] [address] PCP - [facility] 06/01/24 Irais Patel NP [address] [place] [address] Nurse Practitioner Family Medicine 07/08/23 Data Software Engineer Relationship Specialty Start Date End Date Sarah Gomez MD [address] [place] [address] PCP - General [facility] 07/08/23 Sarah Gomez MD [address] [place] [address] PCP - [facility] 06/01/24 Irais Patel NP [address] [place] [address] Nurse Practitioner Family Medicine 07/08/23 Data Software Engineer Relationship Specialty Start Date End Date Sarah Gomez MD [address] [place] [address] PCP - General Family Medicine 07/08/23 Sarah Gomez MD [address] [place] [address] PCP - [facility] 06/01/24 Irais Patel NP [address] [place] [address] Nurse Practitioner Family [facility] 07/08/23 Data Software Engineer Relationship Specialty Start Date End Date Sarah Gomez MD [address] [place] [address] PCP - General [facility] 07/08/23 Sarah Gomez MD [address] [place] [address] PCP [facility] 06/01/24 Irais Patel NP [address] [place] [address] Nurse Practitioner Family Medicine 07/08/23 Data Software Engineer Relationship Specialty Start Date End Date Sarah Gomez MD [address] [place] [address] PCP - General Family Medicine 07/08/23 Sarah Gomez MD [address] [place] [address] PCP - [facility] 06/01/24 Irais Patel NP [address] [place] [address] Nurse Practitioner Family Medicine 07/08/23 Reason for Visit (unrecogniz ed section and content) Reason Comments Panic Attack Reason Comments Neck Pain Patient presents tod ay for neck pain/possible pinched nerve. Patient has tried otc pain medication and exercises given by Kala Herrmann, [employer], that have not helped. FOR RECORDS PERTAINING TO PATIENTS WHO ARE OR HAVE BEEN ENROLLED IN A CHEMICAL DEPENDENCY/SUBSTANCEABUSE PROGRAM, SOME INFORMATION MAY BE OMITTED. This clinical summary was aggregated from multiple sources. Caution should be exercised in using it in the provision of clinical care. This summary normalizes information from multiple sources, and as a consequence, information in this document may materially change the coding, format and clinical context of patient data. In addition, data may be omitted in some cases. CLINICAL DECISIONS SHOULD BE BASED ON THE PRIMARY CLINICAL RECORDS. [facility] [employer] provides no warranty or guarantee of the accuracy or completeness of information in this document.
[2024-10-16 11:10] LABS: Age Gdln ACOG Testing Note (.); IGP, rfx Aptima HPV ASCU Note (.)
== END 2024-10-12 20:15 | disposition home or self-care (01) ==
LOC: LAB 20:14
PROVIDERS: Visit Provider Obstetrics & Gynecology
DX: Z01.419 Encounter for gynecological examination (general) (routine) without abnormal findings (principal)
CPT/HCPCS: 88175